=== PATIENT | male | born 1970 | race Caucasian/White ===

== ENCOUNTER 2018-02-09 21:32 | Emergency (ER) | payer OTHER ==
[~2018-02-09] VITALS: Ht 190.5 cm; Wt 172.4 kg
[~2018-02-09 21:32] MED LIST: DARVOCET N PO; HYDROCODONE; INDOMETHACIN 5050 MG; PERCOCET 5-3251 EACH PO; PREVACID30 M1 PO; PROAIR HFA8.5 GM IH; SYNTHROID 0.10.1 M1 PG; TESTIM5 GM; ZOFRAN4 MG PO
[2018-02-09] MEDS ORDERED: AXIRON30 MG/1.5 (21:56)
[2018-02-09] MEDS ORDERED: TRAMADOL 50 MG50 MG PO (22:09)
[2018-02-09] MEDS ORDERED: COLACE100 MG PO (22:09)
[2018-02-09] MEDS ORDERED: ANUSOL-HC25 MG RECTAL (22:09)
[2018-02-09 22:38] VITALS: BP 152/77
== END 2018-02-09 22:41 | disposition home or self-care (01) ==
LOC: M.ERS 21:32
DX: K64.5 Perianal venous thrombosis (principal); K64.8 Other hemorrhoids; E03.9 Hypothyroidism, unspecified; M54.9 Dorsalgia, unspecified; G89.29 Other chronic pain

== ENCOUNTER 2018-07-24 20:39 | Emergency (ER) | payer OTHER ==
[~2018-07-24] VITALS: Ht 190.5 cm; Wt 176.9 kg
[~2018-07-24 20:39] MED LIST changes: +ANUSOL-HC25 MG RECTAL; +AXIRON30 MG/1.5; +COLACE100 MG PO; +TRAMADOL 50 MG50 MG PO
[2018-07-24 22:01] VITALS: BP 122/75
== END 2018-07-24 22:05 | disposition home or self-care (01) ==
LOC: M.ERS 20:39
DX: M25.561 Pain in right knee (principal); E03.9 Hypothyroidism, unspecified; G89.29 Other chronic pain; M54.9 Dorsalgia, unspecified

== ENCOUNTER 2018-08-15 09:21 | Emergency (ER) | payer OTHER ==
[~2018-08-15] VITALS: Ht 190.5 cm; Wt 176.9 kg
[2018-08-15 09:49] LABS: ABSOLUTE EOSINOPHILS 0.1 thou/uL (0.0-0.7); ABSOLUTE LYMPHOCYTES 1.2 thou/uL (0.8-5.3); ABSOLUTE MONOCYTES 0.2 thou/uL (0.0-1.2); ABSOLUTE NEUTROPHILS 1.9 thou/uL (1.6-8.1); BASOPHILS 1.2 %; EOSINOPHILS 2.6 %; HEMATOCRIT 42.2 % (42.0-52.0); HEMOGLOBIN 14.2 gm/dL (14.0-18.0); LYMPHOCYTES 34.3 %; MCH 31.5 pg (26.0-34.0); MCHC 33.7 g/dL (28.0-37.0); MCV 93.4 fL (80.0-100.0); MONOCYTES 6.4 %; NUCLEATED RBCS 0 /100WBC; PLATELET COUNT* 105 thou/uL (150-400); POLYS 55.5 %; RBC 4.52 mil/uL (4.50-6.00); RDW-CV 12.8 % (10.5-14.5); WBC 3.5 thou/uL (4.0-11.0)
[2018-08-15 09:59] LABS: ANION GAP 6 mmol/L (7-16); BUN 14 mg/dL (7-18); CALCIUM 8.1 mg/dL (8.5-10.1); CHLORIDE 104 mmol/L (98-107); CO2 29 mmol/L (21-32); GLUCOSE 110 mg/dL (70-99); POTASSIUM 3.6 mmol/L (3.5-5.1); SODIUM 139 mmol/L (136-145)
[2018-08-15 10:03] LABS: APTT 28.8 Seconds (25.0-31.3); PROTIME 10.3 Seconds (9.20-11.50)
[2018-08-15 10:10] LABS: ALBUMIN 3.6 g/dL (3.4-5.0); ALKALINE PHOSPHATASE 105 U/L (46-116); NT-PRO BRAIN NAT PEPTIDE 21 pg/mL (<300); SGOT 20 U/L (15-37); SGPT 29 U/L (30-65); TOTAL BILIRUBIN 0.4 mg/dL (<0.1-1.0); TROPONIN-I LEVEL <0.06 ng/mL (<0.06)
[2018-08-15] MEDS ORDERED: MOTION RELIEF25 MG PO (10:53)
[2018-08-15 11:01] VITALS: BP 132/81
--- NOTE | 2018-08-16 10:45 | EKG ---
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: TAWNYA : 1970 Requested By: Abram Godwin Order Number: [id number] MD: Deandre Taylor Measurements Intervals [place] Rate: 74 P: 29 [place]: 219 QRS: -2 QRSD: 110 T: 7 QT: 409 QTc: 454 Interpretive Statements Sinus rhythm Prolonged [place] interval Low voltage, precordial leads Left ventricular hypertrophy Baseline wander in lead(s) II,III,aVF Compared to ECG 11/14/2014 20:13:26 First degree AV block now present Low QRS voltage now present Electronically Signed On 08-16-2018 10:45:16 CDT by Deandre Taylor [email or web address] <ELECTRONICALLY SIGNED> By: Deandre Taylor MD, [facility] 08/16/18 1045 0934 0934 Deandre Taylor MD, [facility] /EPI
== END 2018-08-15 11:02 | disposition home or self-care (01) ==
LOC: M.ERS 09:21
PROVIDERS: Family Medicine
DX: R42 Dizziness and giddiness (principal); R06.02 Shortness of breath; R60.0 Localized edema; E03.9 Hypothyroidism, unspecified; G89.29 Other chronic pain; M54.9 Dorsalgia, unspecified

== ENCOUNTER 2018-10-28 21:10 | Emergency (ER) | payer OTHER ==
[~2018-10-28] VITALS: Ht 190.5 cm; Wt 176.9 kg
[~2018-10-28 21:10] MED LIST changes: +MOTION RELIEF25 MG PO; -SYNTHROID 0.10.1 M1 PG; +SYNTHROID50 MCG PO
[2018-10-28] MEDS ORDERED: NORCO 10-325 T1 EACH PO (21:20)
[2018-10-28 22:20] LABS: ABSOLUTE EOSINOPHILS 0.1 thou/uL (0.0-0.7); ABSOLUTE LYMPHOCYTES 1.3 thou/uL (0.8-5.3); ABSOLUTE MONOCYTES 0.3 thou/uL (0.0-1.2); ABSOLUTE NEUTROPHILS 2.2 thou/uL (1.6-8.1); BASOPHILS 1.1 %; EOSINOPHILS 3.1 %; HEMATOCRIT 38.7 % (42.0-52.0); HEMOGLOBIN 13.1 gm/dL (14.0-18.0); LYMPHOCYTES 32.4 %; MCH 31.3 pg (26.0-34.0); MCHC 33.9 g/dL (28.0-37.0); MCV 92.4 fL (80.0-100.0); MONOCYTES 8.2 %; MPV 9.1 fl. (7.2-11.1); NUCLEATED RBCS 0 /100WBC; PLATELET COUNT* 136 thou/uL (150-400); POLYS 55.2 %; RBC 4.19 mil/uL (4.50-6.00); RDW-CV 12.9 % (10.5-14.5); WBC 3.9 thou/uL (4.0-11.0)
[2018-10-28 22:26] LABS: ANION GAP 6 mmol/L (7-16); BUN 12 mg/dL (7-18); CALCIUM 8.3 mg/dL (8.5-10.1); CHLORIDE 104 mmol/L (98-107); CO2 28 mmol/L (21-32); GLUCOSE 123 mg/dL (70-99); SODIUM 138 mmol/L (136-145)
[2018-10-28 22:36] LABS: ALBUMIN 3.6 g/dL (3.4-5.0); ALKALINE PHOSPHATASE 116 U/L (46-116); NT-PRO BRAIN NAT PEPTIDE 23 pg/mL (<300); SGOT 18 U/L (15-37); SGPT 33 U/L (30-65); TOTAL BILIRUBIN 0.3 mg/dL (<0.1-1.0); TOTAL PROTEIN 7.2 g/dL (6.4-8.2); TROPONIN-I LEVEL <0.06 ng/mL (<0.06)
[2018-10-28] MEDS ORDERED: COMPRESSION TH1 EACH TOP (23:22)
[2018-10-28 23:40] VITALS: BP 133/72
--- NOTE | 2018-10-29 11:26 | EKG ---
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 ALBARRAN : 1970 Requested By: Silvina Motley Order Number: [id number] MD: Deandre Taylor Measurements Intervals [place] Rate: 67 P: 11 [place]: 230 QRS: -2 QRSD: 97 T: 16 QT: 411 QTc: 434 Interpretive Statements Sinus rhythm Prolonged [place] interval Abnormal R-wave progression, early transition Probable left ventricular hypertrophy Baseline wander in lead(s) II,aVR Compared to ECG 08/15/2018 09:34:19 No significant changes Electronically Signed On 10-29-2018 11:26:29 MANAGER CASH by Deandre Taylor [email or web address] <ELECTRONICALLY SIGNED> By: Deandre Taylor MD, [facility] 10/29/18 1126 2227 2227 Deandre Taylor MD, [facility]AC /EPI
== END 2018-10-28 23:41 | disposition home or self-care (01) ==
LOC: M.ERS 21:10
PROVIDERS: Nurse Practitioner Family
DX: R60.0 Localized edema (principal); E03.9 Hypothyroidism, unspecified; G89.29 Other chronic pain; M54.9 Dorsalgia, unspecified; Z98.890 Other specified postprocedural states

== ENCOUNTER 2019-01-11 00:05 | Emergency (ER) | payer OTHER ==
[~2019-01-11] VITALS: Ht 190.5 cm; Wt 174.6 kg
[~2019-01-11 00:05] MED LIST changes: +COMPRESSION TH1 EACH TOP; +NORCO 10-325 T1 EACH PO
[2019-01-11] MEDS ORDERED: LASIX 20 MG TAB20 MG (00:18)
[2019-01-11] MEDS ORDERED: PERCOCET 10-321 EACH (00:18)
[2019-01-11 00:37] LABS: ABSOLUTE EOSINOPHILS 0.3 thou/uL (0.0-0.7); ABSOLUTE LYMPHOCYTES 1.5 thou/uL (0.8-5.3); ABSOLUTE MONOCYTES 0.4 thou/uL (0.0-1.2); EOSINOPHILS 7.5 %; HEMATOCRIT 38.5 % (42.0-52.0); HEMOGLOBIN 13.1 gm/dL (14.0-18.0); LYMPHOCYTES 36.6 %; MCH 31.4 pg (26.0-34.0); MCHC 34.1 g/dL (28.0-37.0); MCV 91.9 fL (80.0-100.0); MONOCYTES 8.6 %; MPV 9.6 fl. (7.2-11.1); NUCLEATED RBCS 0 /100WBC; PLATELET COUNT* 132 thou/uL (150-400); POLYS 46.3 %; RBC 4.19 mil/uL (4.50-6.00); RDW-CV 12.8 % (10.5-14.5); WBC 4.2 thou/uL (4.0-11.0)
[2019-01-11 00:42] LABS: ANION GAP 9 mmol/L (7-16); BUN 19 mg/dL (7-18); CALCIUM 8.4 mg/dL (8.5-10.1); CHLORIDE 104 mmol/L (98-107); CO2 27 mmol/L (21-32); GLUCOSE 108 mg/dL (70-99); POTASSIUM 3.5 mmol/L (3.5-5.1); SODIUM 140 mmol/L (136-145)
[2019-01-11 00:53] LABS: ALBUMIN 3.4 g/dL (3.4-5.0); ALKALINE PHOSPHATASE 128 U/L (46-116); LIPASE 93 U/L (73-393); NT-PRO BRAIN NAT PEPTIDE 23 pg/mL (<300); SGOT 15 U/L (15-37); SGPT 29 U/L (30-65); TOTAL BILIRUBIN 0.2 mg/dL (<0.1-1.0); TOTAL PROTEIN 7.2 g/dL (6.4-8.2); TROPONIN-I LEVEL <0.06 ng/mL (<0.06)
[2019-01-11 04:08] VITALS: BP 133/82
--- NOTE | 2019-01-11 09:47 | EKG ---
[place] [address] ELECTROCARDIOGRAM REPORT Name: RADHA MACIEL Room: [facility]#: [id number] Admission: 01/11/19 Attend Phys: Discharge: 01/11/19 Date of : 74 Report #: [id number] THIS REPORT FOR: //name// 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
== END 2019-01-11 04:08 | disposition home or self-care (01) ==
LOC: M.ERS 00:05
PROVIDERS: Emergency Medicine
DX: R07.89 Other chest pain (principal); E03.9 Hypothyroidism, unspecified; M54.9 Dorsalgia, unspecified; G89.29 Other chronic pain

== ENCOUNTER 2020-01-31 20:35 | Emergency (ER) | payer OTHER ==
[~2020-01-31] VITALS: Ht 188 cm; Wt 176.9 kg
[~2020-01-31 20:35] MED LIST changes: +LASIX 20 MG TAB20 MG; +PERCOCET 10-321 EACH
[2020-01-31] MEDS ORDERED: LUNESTA3 MG PO (21:05)
[2020-01-31 21:50] LABS: ABSOLUTE EOSINOPHILS 0.1 thou/uL (0.0-0.7); ABSOLUTE LYMPHOCYTES 1.4 thou/uL (0.8-5.3); ABSOLUTE MONOCYTES 0.4 thou/uL (0.0-1.2); EOSINOPHILS 2.2 %; HEMATOCRIT 38.5 % (42.0-52.0); HEMOGLOBIN 13.4 gm/dL (14.0-18.0); LYMPHOCYTES 36.5 %; MCH 31.2 pg (26.0-34.0); MCHC 34.8 g/dL (28.0-37.0); MCV 89.5 fL (80.0-100.0); MONOCYTES 9.3 %; MPV 9.4 fl. (7.2-11.1); NUCLEATED RBCS 0 /100WBC; PLATELET COUNT* 113 thou/uL (150-400); WBC 3.9 thou/uL (4.0-11.0)
[2020-01-31 21:54] LABS: CALCIUM 7.4 mg/dL (8.5-10.1); CREATININE 0.9 mg/dL (0.6-1.3); POTASSIUM 3.9 mmol/L (3.5-5.1)
[2020-01-31 22:05] LABS: ALBUMIN 3.3 g/dL (3.4-5.0); APTT 25.5 Seconds (25.0-31.3); PROTIME 10.2 Seconds (9.20-11.50); TOTAL BILIRUBIN 0.2 mg/dL (<0.1-1.0); TOTAL PROTEIN 6.8 g/dL (6.4-8.2)
[2020-02-01] MEDS ORDERED: AZITHROMYCIN 2250 MG PO (00:52)
[2020-02-01] MEDS ORDERED: PREDNISONE 10 M10 M1 PO (00:52)
[2020-02-01 01:01] VITALS: BP 111/63
--- NOTE | 2020-02-01 16:32 | EKG ---
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: : 1970 Requested By: Shefali Pace Order Number: [id number] MD: Yanick Hanson Measurements Intervals [place] Rate: 64 P: 21 [place]: 186 QRS: -10 QRSD: 119 T: 11 QT: 428 QTc: 442 Interpretive Statements Sinus rhythm Incomplete left bundle branch block Low voltage, precordial leads Baseline wander in lead(s) V2 Compared to ECG 01/11/2019 00:11:00 Incomplete Left bundle-branch block now present Low QRS voltage now present Left ventricular hypertrophy no longer present Electronically Signed On 02-01-2020 16:31:06 CDT by Yanick Hanson [email or web address] <ELECTRONICALLY SIGNED> By: Yanick Hanson MD, [facility] 02/01/20 1631 06 06 Yanick Hanson MD, [facility] /EPI
== END 2020-02-01 01:01 | disposition home or self-care (01) ==
LOC: M.ERS 20:35
PROVIDERS: Personal Emergency Response Attendant
DX: J21.9 Acute bronchiolitis, unspecified (principal); E03.9 Hypothyroidism, unspecified; G89.29 Other chronic pain; Z86.711 Personal history of pulmonary embolism

== ENCOUNTER 2021-03-21 20:59 | Emergency (ER) | payer OTHER ==
[~2021-03-21] VITALS: Ht 190.5 cm; Wt 175.1 kg
[~2021-03-21 20:59] MED LIST changes: +AZITHROMYCIN 2250 MG PO; +LUNESTA3 MG PO; +PREDNISONE 10 M10 M1 PO
[2021-03-21] MEDS ORDERED: OMEPRAZOLE40 MG PO (21:07)
[2021-03-21 21:26] LABS: ABSOLUTE EOSINOPHILS 0.1 thou/uL (0.0-0.7); ABSOLUTE LYMPHOCYTES 1.4 thou/uL (0.8-5.3); ABSOLUTE MONOCYTES 0.4 thou/uL (0.0-1.2); ABSOLUTE NEUTROPHILS 2.6 thou/uL (1.6-8.1); BASOPHILS 0.8 %; EOSINOPHILS 2.7 %; HEMATOCRIT 43.8 % (42.0-52.0); HEMOGLOBIN 14.5 gm/dL (14.0-18.0); LYMPHOCYTES 30.9 %; MCH 29.7 pg (26.0-34.0); MCHC 33.1 g/dL (28.0-37.0); MCV 89.9 fL (80.0-100.0); MONOCYTES 7.8 %; MPV 8.9 fl. (7.2-11.1); NUCLEATED RBCS 0 /100WBC; PLATELET COUNT* 115 thou/uL (150-400); POLYS 57.8 %; RBC 4.87 mil/uL (4.50-6.00); RDW-CV 13.5 % (10.5-14.5); WBC 4.5 thou/uL (4.0-11.0)
[2021-03-21 21:38] LABS: CALCIUM 7.9 mg/dL (8.5-10.1); CREATININE 1.1 mg/dL (0.6-1.3); POTASSIUM 3.8 mmol/L (3.5-5.1)
[2021-03-21 21:42] LABS: APTT 27.4 Seconds (25.0-31.3); PROTIME 10.5 Seconds (9.20-11.50)
[2021-03-21 21:48] LABS: ALBUMIN 3.5 g/dL (3.4-5.0); TOTAL BILIRUBIN 0.3 mg/dL (<0.1-1.0)
[2021-03-22 00:56] VITALS: BP 137/77
--- NOTE | 2021-03-22 11:05 | EKG ---
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: : 1970 Requested By: Shefali Pace Order Number: [id number] MD: Deandre Taylor Measurements Intervals [place] Rate: 73 P: 27 [place]: 226 QRS: -19 QRSD: 111 T: 23 QT: 417 QTc: 460 Interpretive Statements Sinus rhythm Prolonged [place] interval Low voltage, precordial leads Left ventricular hypertrophy Compared to ECG 01/31/2020 21:07:23 no change Electronically Signed On 03-22-2021 11:05:02 CDT by Deandre Taylor [email or web address] <ELECTRONICALLY SIGNED> By: Deandre Taylor MD, FACC 03/22/21 1105 03 03 Deandre Taylor MD, [facility] /EPI
== END 2021-03-22 00:57 | disposition home or self-care (01) ==
LOC: M.ERS 20:59
PROVIDERS: Personal Emergency Response Attendant
DX: R07.89 Other chest pain (principal); E03.9 Hypothyroidism, unspecified; G89.29 Other chronic pain; Z86.711 Personal history of pulmonary embolism